=== PATIENT | male | born 1960 | race Caucasian/White ===

== ENCOUNTER → 2016-06-28 | Outpatient (REF) ==
--- NOTE | 2016-06-28 11:06 | REP ---
LEFT KNEE SERIES: Five views of the left knee are performed. There is no acute fracture or dislocation. There is moderate diffuse joint space narrowing with subchondral sclerosis and spurring, in all compartments of the knee. Round calcific body is seen at the anterior margin of the joint on the lateral view measuring 9 mm in diameter. There is a small joint effusion. Oval calcification at the posterior margin of the joint may lie within a tendon. IMPRESSION: Moderate diffuse degenerative changes. Small joint effusion. Signed by Christian Brewer MD 06/28/2016 12:16 P
== END ==
LOC: M SMT 09:46
PROVIDERS: ATTEND Internal Medicine
DX: Z02.71 Encounter for disability determination (principal)